=== PATIENT | female | born 1950 | race Caucasian/White ===

== ENCOUNTER → 2024-12-27 09:08 | Outpatient (REF) | payer MEDICARE, OTHER, SELFPAY | LOC: HWRAD 09:08 | PROVIDERS: ATTENDING PHYSICIAN Internal Medicine | DX: R10.33 Periumbilical pain (principal) | CPT/HCPCS: 76700 ==

== ENCOUNTER → 2025-01-25 09:42 | Outpatient (REF) | payer MEDICARE, OTHER, SELFPAY | LOC: HWRAD 09:42 | PROVIDERS: ATTENDING PHYSICIAN Nurse Practitioner | DX: R35.0 Frequency of micturition (principal) | CPT/HCPCS: 76770; 76856 ==